=== PATIENT | female | born 1975 | race Caucasian/White ===

== ENCOUNTER 2023-09-18 00:04 | Emergency (ER) | payer OTHER ==
[2023-09-18 00:15] VITALS: BP 127/81; PULSE 86; RESP 19; TEMP 97.6; BMI 29.0
[2023-09-18] MEDS ORDERED: AMOX TR/POT CLAV 875MG/125MG TABLETS (FP) ONE (00:46)
[2023-09-18] MEDS: AMOX TR/POT CLAV 875MG/125MG TABLETS (FP) PO ONE (00:47)
[2023-09-18] MEDS ORDERED: KETOROLAC TROMETHAMINE 15 MG/ML VIAL ONE (01:01)
[2023-09-18] MEDS: KETOROLAC TROMETHAMINE 30 MG/1 ML VIAL IM ONE (01:03)
== END 2023-09-18 01:04 | disposition home or self-care (01) ==
LOC: JER 00:04
PROC: 3E0233Z Introduction of Anti-inflammatory into Muscle, Percutaneous Approach (ICD-10-PCS; principal; 2023-09-18)
DX: R68.84 Jaw pain (principal); K08.89 Other specified disorders of teeth and supporting structures
CPT/HCPCS: 99284-25